=== PATIENT | female | born 1945 | race Two or more races ===

== ENCOUNTER 2018-03-21 10:50 | Outpatient (CLI) | payer OTHER ==
[~2018-03-21 10:50] MED LIST: ATIVAN2 M1; HYZAAR 100-251 UDTAB; METFORMIN HCL500 MG; SYNTHROID100 MCG; [UNRECOGNIZED DRUG - OTHER]
== END 2018-03-21 10:52 | disposition home or self-care (01) ==
LOC: SONOGRAMA 10:50
DX: E04.2 Nontoxic multinodular goiter (principal)

== ENCOUNTER 2018-05-20 12:45 | Outpatient (CLI) | payer OTHER | END 2018-05-20 12:57 | disposition home or self-care (01) | LOC: MAMO-SONO 12:45 | DX: Z12.31 Encounter for screening mammogram for malignant neoplasm of breast (principal); Z87.898 Personal history of other specified conditions; R92.0 Mammographic microcalcification found on diagnostic imaging of breast ==

== ENCOUNTER 2020-10-25 13:36 | Outpatient (CLI) | payer OTHER | END 2020-10-25 13:39 | disposition home or self-care (01) | LOC: SONOGRAMA 13:36 | PROVIDERS: ATTEND Internal Medicine Rheumatology | DX: M65.811 Other synovitis and tenosynovitis, right shoulder (principal); E04.1 Nontoxic single thyroid nodule ==

== ENCOUNTER 2020-10-27 08:00 | Outpatient (CLI) | payer OTHER | END 2020-10-27 08:30 | disposition home or self-care (01) | LOC: PPH VACUNA 08:00 | DX: Z23 Encounter for immunization (principal) ==

== ENCOUNTER 2020-12-06 11:38 | Outpatient (CLI) | payer OTHER | END 2020-12-06 11:56 | disposition home or self-care (01) | LOC: MAMO-SONO 11:38 | PROVIDERS: ATTEND Plastic Surgery | DX: N60.11 Diffuse cystic mastopathy of right breast (principal); Z12.31 Encounter for screening mammogram for malignant neoplasm of breast; N64.4 Mastodynia ==

== ENCOUNTER 2021-06-01 08:00 | Outpatient (CLI) | payer OTHER | END 2021-06-01 08:30 | disposition home or self-care (01) | LOC: PPH VACUNA 08:00 | PROVIDERS: ATTEND Emergency Medicine Pediatric Emergency Medicine | DX: Z23 Encounter for immunization (principal) ==

== ENCOUNTER 2021-08-16 08:02 | Emergency (ER) | payer OTHER ==
[~2021-08-16] VITALS: Ht 157.5 cm; Wt 81.6 kg
== END 2021-08-16 13:13 | disposition home or self-care (01) ==
LOC: ER 08:02
DX: S89.91XA Unspecified injury of right lower leg, initial encounter (principal); W18.30XA Fall on same level, unspecified, initial encounter; Y93.01 Activity, walking, marching and hiking; Y92.410 Unspecified street and highway as the place of occurrence of the external cause; S60.512A Abrasion of left hand, initial encounter; S60.511A Abrasion of right hand, initial encounter

== ENCOUNTER 2021-12-24 12:56 | Outpatient (CLI) | payer OTHER | END 2021-12-24 13:06 | disposition home or self-care (01) | LOC: RX STUDY 12:56 → PPH VACUNA 12:56 → RX STUDY 13:06 | PROVIDERS: ATTEND Emergency Medicine Pediatric Emergency Medicine | DX: Z23 Encounter for immunization (principal) ==

== ENCOUNTER 2021-12-24 13:12 | Outpatient (CLI) | payer OTHER | END 2021-12-24 13:26 | disposition home or self-care (01) | LOC: MAMO-SONO 13:12 | PROVIDERS: ATTEND Plastic Surgery | DX: D24.1 Benign neoplasm of right breast (principal); D24.2 Benign neoplasm of left breast ==

== ENCOUNTER 2022-05-06 11:44 | Outpatient (CLI) | payer OTHER | END 2022-05-06 11:58 | disposition home or self-care (01) | LOC: SONOGRAMA 11:44 | PROVIDERS: ATTEND Specialist | DX: E04.1 Nontoxic single thyroid nodule (principal) ==

== ENCOUNTER → 2022-08-21 | Emergency (ER) | payer OTHER ==
[~2022-08-21] VITALS: Ht 157.5 cm; Wt 82.6 kg
== END | disposition expired ==
LOC: ER 03:33
DX: R10.9 Unspecified abdominal pain (principal); R11.0 Nausea; Z20.822 Contact with and (suspected) exposure to COVID-19; Z88.0 Allergy status to penicillin